=== PATIENT | male | born 2000 | race Caucasian/White ===

== ENCOUNTER 2021-06-07 11:55 | Emergency (ER) | payer OTHER ==
[~2021-06-07] VITALS: Ht 170.2 cm; Wt 176.9 kg
[2021-06-07 11:55] VITALS: BP_SYST 147
--- NOTE | 2021-06-07 13:20 | NUR ---
Pt to bed 8 for evaluations. Safety precautions in place.
--- NOTE | 2021-06-07 13:40 | NUR ---
Pt came in from home with c/o of pain in the left forearm at a 5/10 pain. Pt states that last week he was lifting a heavy object and it fell. Pt says on friday he was showering and felt a pop when he reached down. Pt states that he has no medical or surgical history and takes no home medications. Patient on the monitor and safety precautions in place.
--- NOTE | 2021-06-07 14:10 | NUR ---
DR WILLETT AT BEDSIDE FOR EVALUATION
[2021-06-07] MEDS ORDERED: IBUP-1971 PO (14:44)
[2021-06-07 14:58] VITALS: BP_SYST 142
--- NOTE | 2021-06-07 14:59 | NUR ---
Patient given written and verbal discharge instructions and verbalizes understanding. ER MD discussed with patient the results and treatment provided. Patient in stable condition. ID arm band removed. Rx of Ibuprofen given. Patient educated on pain management and to follow up with PMD. Pain Scale . Opportunity for questions provided and answered. Medication side effect fact sheet provided.
== END 2021-06-07 14:59 | disposition home or self-care (01) ==
LOC: SED 11:55
DX: S56.912A Strain of unspecified muscles, fascia and tendons at forearm level, left arm, initial encounter (principal); Z79.899 Other long term (current) drug therapy; X50.0XXA Overexertion from strenuous movement or load, initial encounter; Y93.89 Activity, other specified; Y92.89 Other specified places as the place of occurrence of the external cause; Y99.8 Other external cause status
CPT/HCPCS: 73090; 99283

== ENCOUNTER 2021-12-27 10:52 | Emergency (ER) | payer SELFPAY ==
[~2021-12-27] VITALS: Ht 170.2 cm; Wt 179.6 kg
[~2021-12-27 10:52] MED LIST: IBUP-1971 PO
[2021-12-27 10:59] VITALS: BP_SYST 133
--- NOTE | 2021-12-27 11:05 | NUR ---
Placed in room 08, report given to ADAM. PT VSS. NAD NOTED. BOTH SIDE RAILS UP.
--- NOTE | 2021-12-27 11:10 | NUR ---
Pt bib self to ER from home. CC swelling right ankle. Pt states pain 5/10 aching pain. One week ago pt stood up and felt ankle cramping, twisted ankle with body weight pressure causing injury. Pt further notes yesterday at work slipped on gravel and further exascerbated pain at location of right ankle. Skin intact, aaox3, Denies SOB, denies, NVD, Pt is able to bear weight hwas assistive device cane bedside.
--- NOTE | 2021-12-27 11:15 | NUR ---
ER at bedside examining patient.
--- NOTE | 2021-12-27 11:37 | NUR ---
appliance technician xray done in room via gurney.
--- NOTE | 2021-12-27 13:21 | NUR ---
right ankle wrapped with walter bandage by DAWN Vallecillo. Pedal pulses present, cap refill <3sec.
[2021-12-27 13:34] VITALS: BP_SYST 133
--- NOTE | 2021-12-27 13:34 | NUR ---
Patient given written and verbal discharge instructions and verbalizes understanding. ER MD discussed with patient the results and treatment provided. Patient in stable condition. ID arm band removed. Opportunity for questions provided and answered. Medication side effect fact sheet provided.
== END 2021-12-27 13:34 | disposition home or self-care (01) ==
LOC: SED 10:52
DX: S93.401A Sprain of unspecified ligament of right ankle, initial encounter (principal); Z79.899 Other long term (current) drug therapy; W50.2XXA Accidental twist by another person, initial encounter; Y93.89 Activity, other specified; Y92.89 Other specified places as the place of occurrence of the external cause; Y99.8 Other external cause status
CPT/HCPCS: 99284